=== PATIENT | female | born 1990 | race Caucasian/White ===

== ENCOUNTER 2019-01-13 12:48 | Emergency (ER) | payer OTHER ==
[~2019-01-13] VITALS: Ht 162.6 cm; Wt 70.4 kg
[2019-01-13] MEDS ORDERED: CYMB1CAP4 PO (14:11)
[2019-01-13] MEDS ORDERED: CVS10CAP8 PO (14:11)
[2019-01-13] MEDS ORDERED: MULTCAP PO (14:11)
[2019-01-13] MEDS ORDERED: AMBI5TAB PO (14:11)
[2019-01-13 14:51] LABS: HEMATOCRIT 42.4 % (36.0-47.0); HEMOGLOBIN 13.7 g/dl (12.0-15.5); MEAN CORPUSCULAR HEMOGLOBIN 29.1 pg (27.0-33.0); MEAN CORPUSCULAR HGB CONC 32.3 g/dl (32.0-36.5); PLATELET COUNT, AUTOMATED 300 10^3/uL (150-450); RED BLOOD COUNT 4.71 10^6/uL (4.00-5.40); WHITE BLOOD COUNT 7.7 10^3/uL (4.0-10.0)
[2019-01-13 15:03] LABS: HCG, SERUM QUALITATIVE NEGATIVE (NEGATIVE)
[2019-01-13 15:13] LABS: ACETAMINOPHEN LEVEL < 2.0 UG/ML (10.0-30.0); ALBUMIN 4.2 GM/DL (3.2-5.2); ALT/SGPT 19 U/L (12-78); BILIRUBIN,DIRECT < 0.1 MG/DL (0.0-0.2); BILIRUBIN,TOTAL 0.4 MG/DL (0.2-1.0); BLOOD UREA NITROGEN 9 MG/DL (7-18); CALCIUM LEVEL 9.5 MG/DL (8.5-10.1); CARBON DIOXIDE LEVEL 27 MEQ/L (21-32); CHLORIDE LEVEL 109 MEQ/L (98-107); CREATININE FOR GFR 0.71 MG/DL (0.55-1.30); ETHYL ALCOHOL (ETHANOL) < 0.003 % (0.000-0.010); GLOMERULAR FILTRATION RATE > 60.0 (>60); GLUCOSE, FASTING 85 MG/DL (70-100); POTASSIUM SERUM 3.9 MEQ/L (3.5-5.1); SALICYLATE LEVEL < 1.7 MG/DL (5.0-30.0); SODIUM LEVEL 142 MEQ/L (136-145); TOTAL PROTEIN 7.7 GM/DL (6.4-8.2)
[2019-01-13 15:23] LABS: AMPHETAMINES LEVEL URINE NEGATIVE (NEGATIVE); BARBITURATES URINE NEGATIVE (NEGATIVE); BENZODIAZEPINES URINE NEGATIVE (NEGATIVE); CANNABINOIDS URINE NEGATIVE (NEGATIVE); COCAINE METABOLITE URINE NEGATIVE (NEGATIVE); METHADONE URINE NEGATIVE (NEGATIVE); OPIATES URINE NEGATIVE (NEGATIVE); PHENCYCLIDINE URINE NEGATIVE (NEGATIVE)
[2019-01-13] MEDS ORDERED: ALPRAZolam 0.5 MG TAB PO ONE (15:45)
[2019-01-13 18:24] VITALS: BP 127/79
== END 2019-01-13 18:29 | disposition home or self-care (01) ==
LOC: M ED 12:48
DX: F43.0 Acute stress reaction (principal); F41.9 Anxiety disorder, unspecified; F43.10 Post-traumatic stress disorder, unspecified; Z79.899 Other long term (current) drug therapy
CPT/HCPCS: 80048; 80076; 80307; 84443; 84703; 85027; 99284; G0480

== ENCOUNTER 2019-05-22 14:43 | Emergency (ER) | payer OTHER ==
[~2019-05-22] VITALS: Ht 162.6 cm; Wt 70.5 kg
[~2019-05-22 14:43] MED LIST: AMBI5TAB PO; CVS10CAP8 PO; CYMB1CAP4 PO; MULTCAP PO
[2019-05-22] MEDS ORDERED: PREN29TA4 PO (14:50)
[2019-05-22 15:25] LABS: BASO % 0.5 % (0.0-1.0); EOS # 0.1 10^3/uL (0.0-0.5); EOS % 2.4 % (0.0-3.0); HEMATOCRIT 40.2 % (36.0-47.0); HEMOGLOBIN 13.1 g/dl (12.0-15.5); LYMPH # 1.5 10^3/uL (1.5-5.0); LYMPH % 25.6 % (24.0-44.0); MEAN CORPUSCULAR HEMOGLOBIN 29.3 pg (27.0-33.0); MEAN CORPUSCULAR HGB CONC 32.6 g/dl (32.0-36.5); MEAN CORPUSCULAR VOLUME 89.9 fl (80.0-96.0); MONO # 0.3 10^3/uL (0.0-0.8); MONO % 5.7 % (0.0-5.0); NEUTROPHILS # 3.7 10^3/uL (1.5-8.5); NEUTROPHILS % 65.3 % (36.0-66.0); PLATELET COUNT, AUTOMATED 315 10^3/uL (150-450); RED BLOOD COUNT 4.47 10^6/uL (4.00-5.40); WHITE BLOOD COUNT 5.7 10^3/uL (4.0-10.0)
[2019-05-22 16:04] LABS: BLOOD UREA NITROGEN 7 MG/DL (7-18); CALCIUM LEVEL 9.1 MG/DL (8.5-10.1); CARBON DIOXIDE LEVEL 31 MEQ/L (21-32); CHLORIDE LEVEL 107 MEQ/L (98-107); CREATININE FOR GFR 0.69 MG/DL (0.55-1.30); GLOMERULAR FILTRATION RATE > 60.0 (>60); GLUCOSE, FASTING 84 MG/DL (70-100); HCG, SERUM QUANTITATIVE 4924 MIU/ML; SODIUM LEVEL 141 MEQ/L (136-145)
--- NOTE | 2019-05-22 17:50 | REPVR ---
PROCEDURE INFORMATION: Exam: US , Transvaginal Exam date and time: 05/22/2019 4:59 PM Age: 28 years old Clinical indication: Lmp or gestational age (in weeks): 5w3d; Other: Vag bleeding; ; Additional info: Vaginal bleeding TECHNIQUE: Imaging protocol: Real-time transvaginal obstetrical ultrasound of the maternal pelvis and a first trimester with image documentation. Transvaginal imaging was used for better evaluation of the fetus and adnexa. Limited trans abdominal images, incomplete urinary bladder distension. COMPARISON: No relevant prior studies available. FINDINGS: GESTATION: Gestation: Single intrauterine . 3.1 mm yolk sac. Heart rate: No embryo or intrauterine cardiac activity identified. BIOMETRY: Mean sac diameter: Mean sac diameter 5 weeks 2 days (0.5 cm). MATERNAL: Uterus: Uterus 7.9 x 4.1 x 4.3 cm. Anteriorright uterine corporal hypoechoic 1.1 cm leiomyoma. Isoechoic 7.9 mm left uterine corporal leiomyoma (series 1, image 34). Right adnexa: Right ovary 2.5 x 4.8 x 2.5 cm. Complex left ovarian cyst/corpus luteum measuring 2.0 x 2.7 x 2.1 cm, with thick posterior partial septation. Left adnexa: Left ovary 1.7 x 2.6 x 1.8 cm. Unremarkable. Normal blood flow. IMPRESSION: 1. Single intrauterine . 5 weeks 2 days by mean sac diameter. A 1 week follow-up is recommended to confirm viability. 2. Complex right ovarian cyst/corpus luteum. Follow-up recommended. 3. Small uterine leiomyomas. Electronically signed by: Jethro Darling On 05/22/2019 17:50:35 PM
[2019-05-22 18:02] VITALS: BP 116/72
--- NOTE | 2019-05-24 18:41 | ED PDOC ---
Post-Departure Follow-Up dr bowen faxed formal report of 1st trimester us for fu Shelbie Valdez MD May 24, 2019 18:41
== END 2019-05-22 18:23 | disposition home or self-care (01) ==
LOC: M ED 14:43
DX: O20.8 Other hemorrhage in early pregnancy (principal); O34.81 Maternal care for other abnormalities of pelvic organs, first trimester; O99.341 Other mental disorders complicating pregnancy, first trimester; Z3A.01 Less than 8 weeks gestation of pregnancy; Z87.448 Personal history of other diseases of urinary system; Z79.899 Other long term (current) drug therapy

== ENCOUNTER → 2019-05-25 | Outpatient (CLI) | payer OTHER ==
[~2019-05-25] MED LIST changes: +PREN29TA4 PO
== END ==
LOC: M LAB 10:34
PROVIDERS: ATTEND Obstetrics & Gynecology
DX: N93.9 Abnormal uterine and vaginal bleeding, unspecified (principal)

== ENCOUNTER → 2019-05-26 | Outpatient (REF) | payer OTHER ==
[2019-05-26 18:08] LABS: HEMATOCRIT 40.9 % (36.0-47.0); MEAN CORPUSCULAR HEMOGLOBIN 28.8 pg (27.0-33.0); MEAN CORPUSCULAR HGB CONC 31.8 g/dl (32.0-36.5); MEAN CORPUSCULAR VOLUME 90.7 fl (80.0-96.0); PLATELET COUNT, AUTOMATED 292 10^3/uL (150-450); RED BLOOD COUNT 4.51 10^6/uL (4.00-5.40)
[2019-05-26 19:27] LABS: CHLAMYDIA DNA AMPLIFICATION NEGATIVE (NEGATIVE); GC DNA AMPLIFICATION NEGATIVE (NEGATIVE)
[2019-05-27 11:29] LABS: HEPATITIS B SURFACE ANTIGEN NEGATIVE (NEGATIVE); HEPATITIS C VIRUS ABY INDEX 0.1 INDEX (<0.8); HIV 1&2 SCREEN CENTAUR NEGATIVE (NEGATIVE); RUBELLA IgG QUALITATIVE IMMUNE (IMMUNE)
== END ==
LOC: M PLALAB 14:36
PROVIDERS: ATTEND Obstetrics & Gynecology
DX: Z34.01 Encounter for supervision of normal first pregnancy, first trimester (principal); Z11.3 Encounter for screening for infections with a predominantly sexual mode of transmission

== ENCOUNTER → 2019-06-15 | Outpatient (REF) | payer OTHER | LOC: M PLALAB 10:18 | PROVIDERS: ATTEND Obstetrics & Gynecology | DX: Z34.01 Encounter for supervision of normal first pregnancy, first trimester (principal); R39.9 Unspecified symptoms and signs involving the genitourinary system ==

== ENCOUNTER → 2019-09-02 | Outpatient (CLI) | payer OTHER ==
--- NOTE | 2019-09-03 01:54 | REP ---
OB ULTRASOUND: Real-time sonographic evaluation of gravid uterus performed. There is a single living intrauterine gestation with estimated gestational age is 21 weeks 1 day based on today's ultrasound, [facility] 01/12/2020. BPD 47 mm = 20 weeks 2 days HC 177 mm = 20 weeks 1 day AC 170 mm = 22 weeks 0 days Femur length 31 mm = 19 weeks 5 days HC/AC ratio 1.04, normal range 1.05 to 1.24. Estimated weight 381 grams, 35th percentile. Cervical length: Cervix closed and measures 3.4 cm in length. heart rate: 139 beats per minute. SEEN/GROSSLY UNREMARKABLE Lateral ventricles Yes Posterior fossa Yes Upper lip Yes Four-chamber heart Yes LVOT Yes RVOT Yes Stomach Yes Cord insertion Yes Three vessel cord Yes Kidneys Yes Bladder Yes Spine Yes position: Variable. Placenta: Fundal and to the right, grade 1, with no previa or abruption. Amniotic fluid: Within normal limits.
== END ==
LOC: M WHC 14:58
PROVIDERS: ATTEND Advanced Practice Midwife
DX: Z36.3 Encounter for antenatal screening for malformations (principal); Z3A.21 21 weeks gestation of pregnancy

== ENCOUNTER → 2019-10-15 | Outpatient (REF) | payer OTHER ==
[2019-11-12 11:51] LABS: BASO % 0.3 % (0.0-1.0); EOS # 0.2 10^3/uL (0.0-0.5); EOS % 2.6 % (0.0-3.0); HEMATOCRIT 37.5 % (36.0-47.0); HEMOGLOBIN 12.3 g/dl (12.0-15.5); LYMPH # 1.4 10^3/uL (1.5-5.0); MEAN CORPUSCULAR HEMOGLOBIN 29.8 pg (27.0-33.0); MEAN CORPUSCULAR HGB CONC 32.8 g/dl (32.0-36.5); MEAN CORPUSCULAR VOLUME 90.8 fl (80.0-96.0); MONO # 0.5 10^3/uL (0.0-0.8); MONO % 5.8 % (0.0-5.0); NEUTROPHILS # 6.7 10^3/uL (1.5-8.5); NEUTROPHILS % 74.3 % (36.0-66.0); PLATELET COUNT, AUTOMATED 258 10^3/uL (150-450); RED BLOOD COUNT 4.13 10^6/uL (4.00-5.40)
== END ==
LOC: M SFHCWAGY 12:42
PROVIDERS: ATTEND Advanced Practice Midwife
DX: Z34.83 Encounter for supervision of other normal pregnancy, third trimester (principal); Z36.89 Encounter for other specified antenatal screening
CPT/HCPCS: 36415; 82950; 85025; 86850; 86900; 86901; G0463

== ENCOUNTER → 2019-12-25 | Outpatient (REF) | payer OTHER | LOC: M SFHCWAGY 09:45 | PROVIDERS: ATTEND Advanced Practice Midwife | DX: Z34.03 Encounter for supervision of normal first pregnancy, third trimester (principal) | CPT/HCPCS: 87081; G0463 ==

== ENCOUNTER 2020-01-10 16:57 | Inpatient (IN) | payer OTHER ==
[~2020-01-10] VITALS: Ht 162.6 cm; Wt 85.2 kg
[2020-01-10] MEDS ORDERED: miSOPROStol 50 MCG 1/2 TAB (S0191) SL SCH (18:00)
[2020-01-10 18:19] VITALS: BP 119/77
[2020-01-10 18:26] LABS: HEMATOCRIT 39.3 % (36.0-47.0); HEMOGLOBIN 12.7 g/dl (12.0-15.5); MEAN CORPUSCULAR HEMOGLOBIN 28.2 pg (27.0-33.0); MEAN CORPUSCULAR HGB CONC 32.3 g/dl (32.0-36.5); MEAN CORPUSCULAR VOLUME 87.3 fl (80.0-96.0); PLATELET COUNT, AUTOMATED 225 10^3/uL (150-450); WHITE BLOOD COUNT 8.8 10^3/uL (4.0-10.0)
[2020-01-10 19:36] VITALS: BP 123/79
[2020-01-10 21:08] VITALS: BP 108/66
[2020-01-10 22:12] VITALS: BP 134/87
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
[2020-01-10] MEDS ORDERED: LR 1,000 ML IV SCH (22:35)
[2020-01-10] MEDS ORDERED: PROMETHAZINE INJ 25 MG/ML VIAL (J2550) IV ONE (22:45)
[2020-01-10] MEDS ORDERED: OXYTOCIN DRIP 30 UNITS in IV 1 EA IV SCH (22:45)
[2020-01-10] MEDS ORDERED: BUTORPHANOL 2 MG/ML INJ (J0595) IV ONE (22:45)
[2020-01-10] MEDS ORDERED: FENTANYL 2MCG/ML ROPIVACAINE 0.2% IN 0.9% NACL 100ML IVBAG As Ordered ONE (23:00)
[2020-01-10 23:05] VITALS: BP 95/62
[2020-01-10 23:35] VITALS: BP 125/83
[2020-01-10] MEDS ORDERED: REFRIGERATOR IV KEYS XX PRN (23:58)
[2020-01-10] MEDS ORDERED: diphenhydrAMINE 50MG/ML VIAL (J1200) IV PRN (23:58)
[2020-01-10] MEDS ORDERED: ePHEDrine SULFATE 25 MG/5 ML(5MG/ML) SYRINGE IV PRN (23:58)
[2020-01-10] MEDS ORDERED: EPIDURAL/PCA KEYS XX PRN (23:58)
[2020-01-10] MEDS ORDERED: EPIDURAL COMMENT XX SCH (23:58)
[2020-01-10] MEDS ORDERED: LACTATED RINGER'S 1000 ML IV PRN (23:58)
[2020-01-10] MEDS ORDERED: FENTANYL/ROPIVACAINE/NACL BAG 100 ML EPIDURAL SCH (23:58)
[2020-01-10] MEDS ORDERED: ONDANSETRON 4MG/2ML VIAL IV PRN (23:58)
[2020-01-10] MEDS ORDERED: NALOXONE INJ 0.4MG/1ML VIAL (J2310 PER 1MG) IV PRN (23:58)
[2020-01-11] VITALS (29 sets, daily range): BP systolic 89–146; BP diastolic 50–76
[2020-01-11] MEDS ORDERED: MEASLES,MUMPS,RUBELLA VACCINE INJ (MMR-II) (90707) SC SCH (04:30)
[2020-01-11] MEDS ORDERED: RHOGAM 300 MCG (1500 IU) INJ (J2790) IM SCH (04:30)
[2020-01-11] MEDS ORDERED: IBUPROFEN 800 MG TAB PO PRN (04:30)
[2020-01-11] MEDS ORDERED: IBUPROFEN 600MG TAB PO PRN (04:30)
[2020-01-11] MEDS ORDERED: METHYLERGONOVINE MALEATE 0.2 MG TAB PO PRN (04:30)
[2020-01-11] MEDS ORDERED: OXYTOCIN DRIP 30 UNITS in IV 1 EA IV ONE (04:30)
[2020-01-11] MEDS ORDERED: ACETAMINOPHEN TAB 650MG DOSE (2X325MG) PO PRN (04:30)
[2020-01-11] MEDS ORDERED: DIBUCAINE 1% OINTMENT 30GM TOP PRN (04:30)
[2020-01-11] MEDS ORDERED: DOCUSATE SODIUM 100 MG CAP PO PRN (04:30)
--- NOTE | 2020-01-11 04:32 | DNPDOC ---
[facility] Delivery Note Delivery Note DATE OF DELIVERY: January 11, 2020 PREDELIVERY DIAGNOSIS: 38-5/7 weeks' gestation and labor. POST DELIVERY DIAGNOSIS: Delivered. PROCEDURE: Spontaneous vaginal delivery. LEGAL TECHNICIAN: Dr. Nilesh Iraheta MD ANESTHESIA: epidural. ESTIMATED BLOOD LOSS: 300 mL. FINDINGS: 7 pound 10 ounce Male infant, Score 9/9. DELIVERY SUMMARY: Patient is a 29-year-old 1 now para 1 who was admitted to labor and delivery spontaneous rupture of membranes. After a 15 minute second stage of labor there was a spontaneous vaginal delivery of a 7 lb. 10 oz. Male infant. No nuchal cord .Shoulders delivered with ease. Placenta delivered spontaneously and appeared to be intact. First degree perineal laceration repaired with 2-O Chromic in the usual fashion. Pt received IV Pitocin immediately after delivery of the placenta. Sponge and needle counts correct. NILESH IRAHETA MD Jan 11, 2020 04:32
[2020-01-11] MEDS: PRENATAL VITAMINS CHEWABLE TABLET PO SCH (08:11)
[2020-01-11] MEDS: ACETAMINOPHEN 500 MG TAB PO PRN ×2 (14:25→20:45)
[2020-01-12] MEDS: ACETAMINOPHEN 500 MG TAB PO PRN (04:29)
[2020-01-12 05:32] VITALS: BP 111/56
--- NOTE | 2020-01-12 06:51 | IPNPDOC ---
Progress Note Date of Service: Jan 12, 2020 Day#: 1 Progress Note SUBJECT: Shirin is a 29-year-old 1 now Para 1-0-0-1 status post uncomp licated spontaneous vaginal delivery, doing well day # 1 She has been ambulating, voiding spontaneously without issue and tolerating regular diet. Breast feeding without issue. Reports lochia is like a normal period, no odor. Patient is ambulating well. Reports some cramping with , Tylenol and Motrin with good effect. Denies any pain. Voiding and passing flatus without difficulty, took Dulcolax this morning. Desires discharge home, pending discharge OBJECTIVE: VITAL SIGNS: Within normal limits, afebrile. Alert and oriented times three. Abdomen: Fundus firm at U-1. Soft, NTTP. Minimal, rubra lochia. ASSESSMENT: Day 1 PLAN: 1. Discharge to home today. 2. Tylenol and Motrin for pain. 3. Encourage breast feeding and ambulation. 4. Routine PP visit in 6 weeks in clinic. 5. Discussed return precautions at length. VS, I&O, 24H, Fishbone Vital Signs/I&O Vital Signs Date Time Temp Pulse Resp B/P (MAP) Pulse Ox O2 Delivery O2 Flow Rate FiO2 01/12/20 05:32 98.5 72 18 111/56 (74) 01/11/20 08:00 100 Room Air I&O- Last 24 Hours up to 6 AM 01/12/20 06:00 Intake Total 240 ml Output Total 800 ml Balance -560 ml NE PINTO CNM Jan 12, 2020 06:51
[2020-01-12] MEDS: PRENATAL VITAMINS CHEWABLE TABLET PO SCH (07:34)
[2020-01-12 18:04] VITALS: BP 134/87
[2020-01-13 05:51] VITALS: BP 125/70
[2020-01-13] MEDS: PRENATAL VITAMINS CHEWABLE TABLET PO SCH (07:55)
[2020-01-13] MEDS: ACETAMINOPHEN 500 MG TAB PO PRN (07:56)
== END 2020-01-13 12:20 | disposition home or self-care (01) | DRG 807 ==
LOC: M LDO 16:57 → M LDI 17:15 → M OBS 01-11 06:41
PROVIDERS: ADMIT Specialist; ATTEND Specialist
PROC: 10E0XZZ Delivery of Products of Conception, External Approach (ICD-10-PCS; principal; 2020-01-11)
PROC: 0HQ9XZZ Repair Perineum Skin, External Approach (ICD-10-PCS; 2020-01-11)
DX: O42.02 Full-term premature rupture of membranes, onset of labor within 24 hours of rupture (principal); Z37.0 Single live birth; Z3A.38 38 weeks gestation of pregnancy; O70.0 First degree perineal laceration during delivery

== ENCOUNTER → 2020-06-08 | Outpatient (REF) | payer OTHER | LOC: M SFHCWAGY 17:03 | PROVIDERS: ATTEND Advanced Practice Midwife | DX: Z12.4 Encounter for screening for malignant neoplasm of cervix (principal) | CPT/HCPCS: G0123; G0463 ==

== ENCOUNTER 2020-06-12 15:09 | Emergency (ER) | payer OTHER ==
[~2020-06-12] VITALS: Ht 162.6 cm; Wt 74.1 kg
[2020-06-12] MEDS ORDERED: NS 500 ML IV ONE (15:25)
[2020-06-12 15:49] LABS: BASO % 0.3 % (0.0-1.0); EOS # 0.2 10^3/uL (0.0-0.5); EOS % 3.3 % (0.0-3.0); HEMATOCRIT 41.3 % (36.0-47.0); HEMOGLOBIN 13.5 g/dl (12.0-15.5); LYMPH # 1.5 10^3/uL (1.5-5.0); LYMPH % 23.3 % (24.0-44.0); MEAN CORPUSCULAR HEMOGLOBIN 28.9 pg (27.0-33.0); MEAN CORPUSCULAR HGB CONC 32.7 g/dl (32.0-36.5); MEAN CORPUSCULAR VOLUME 88.4 fl (80.0-96.0); MONO # 0.4 10^3/uL (0.0-0.8); MONO % 6.1 % (2.0-8.0); NEUTROPHILS # 4.4 10^3/uL (1.5-8.5); NEUTROPHILS % 66.5 % (36.0-66.0); PLATELET COUNT, AUTOMATED 279 10^3/uL (150-450); RED BLOOD COUNT 4.67 10^6/uL (4.00-5.40); WHITE BLOOD COUNT 6.6 10^3/uL (4.0-10.0)
[2020-06-12] MEDS ORDERED: ISOVUE-370 76% 100ML VIAL As Ordered ONE (15:53)
[2020-06-12 16:03] LABS: PROTHROMBIN TIME 13.4 SECONDS (12.5-14.3)
[2020-06-12 16:04] LABS: PARTIAL THROMBOPLASTIN TIME 28.5 SECONDS (24.2-38.5)
[2020-06-12 16:08] LABS: ALT/SGPT 21 U/L (12-78)
[2020-06-12 16:09] LABS: ALBUMIN 3.9 GM/DL (3.2-5.2); AMYLASE 60 U/L (25-115); BILIRUBIN,DIRECT < 0.1 MG/DL (0.0-0.2); BILIRUBIN,TOTAL 0.3 MG/DL (0.2-1.0); LIPASE 101 U/L (73-393); TOTAL PROTEIN 7.1 GM/DL (6.4-8.2)
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
[2020-06-12 17:45] VITALS: BP 121/81
[2020-06-12] MEDS ORDERED: ACETAMINOPHEN 325 MG TAB PO ONE (17:45)
--- NOTE | 2020-06-12 19:32 | ECGEPIP ---
[facility] - ED Test Date: 2020-06-12 Pat Name: YOEL DAMIAN Department: Room: - Gender: Female Striper: : 1990 Requested By: Shelbie Hitchcock Order Number: [id number] Reading MD: Shelbie Hitchcock Measurements Intervals Bates Rate: 67 P: -14 SD: 150 QRS: 26 QRSD: 94 T: 28 QT: 398 QTc: 420 Interpretive Statements Normal sinus rhythm Nonspecific ST T wave changes Electronically Signed on 06-12-2020 19:31:52 EDT by Shelbie Hitchcock
== END 2020-06-12 18:24 | disposition home or self-care (01) ==
LOC: M ED 15:09
DX: S16.1XXA Strain of muscle, fascia and tendon at neck level, initial encounter (principal); S32.018A Other fracture of first lumbar vertebra, initial encounter for closed fracture; S32.028A Other fracture of second lumbar vertebra, initial encounter for closed fracture; V03.10XA Pedestrian on foot injured in collision with car, pick-up truck or van in traffic accident, initial encounter; Y92.480 Sidewalk as the place of occurrence of the external cause; I51.7 Cardiomegaly; M25.551 Pain in right hip
CPT/HCPCS: 70450; 71045; 71260; 72125; 72131; 73502; 73700; 74177; 80047; 80076; 82150; 83690; 84702; 85025; 85610; 85730; 86850; 86900; 86901; 93005; 93041; 94760; 96360; 99285; Q9967

== ENCOUNTER → 2020-07-06 | Outpatient (CLI) | payer OTHER ==
--- NOTE | 2020-07-07 13:58 | ECHO ---
DATE OF PROCEDURE: 07/06/2020 Age: 29 Gender: Female Height: Weight: REFERRING INDIVIDUAL: Sonu Israel. INDICATION: Cardiomegaly. MEASUREMENTS: 2D Measurements: Proximal ascending aorta 2.4 cm Interventricular septum 0.77 cm Posterior wall 0.80 cm Left ventricle diastole 4.9 cm Left ventricle systole 3.4 cm Aortic root 2.9 cm Left atrium 3.4 cm Doppler Measurements: No aortic stenosis No aortic regurgitation Aortic valve velocity 119 cm/s LVOT velocity 98.5 cm/s LVOT VTI 21.1 cm Trace mitral regurgitation Mitral E velocity 98.3 cm/s Mitral A velocity 36.5 cm/s Mitral deceleration time 187 msec Mild tricuspid regurgitation Estimated right ventricle systolic pressure 23-28 mmHg Estimated right atrial pressure of 5-10 mmHg No pulmonic regurgitation MITRAL ANNULAR TISSUE DOPPLER E prime septal 10.7 cm/s, E prime lateral 13.0 cm/s DESCRIPTION: Rhythm was sinus rhythm and sinus bradycardia observed. No pericardial effusion. Image quality was good. This was a 2D, M-mode, color flow Doppler, and pulsed wave Doppler examination including mitral annular tissue Doppler. CONCLUSIONS: 1. Normal echocardiogram Doppler. 2. Normal cardiac chamber size. Normal left ventricle internal dimensions and wall thickness. Normal regional LV wall motion and wall thickening. Normal LV systolic function. LVEF 60% by visual estimate. Super-normal LV diastolic function. 3. No pericardial effusion. MTDD
== END ==
LOC: M CARPUL 08:44
PROVIDERS: ATTEND Emergency Medicine
DX: I51.7 Cardiomegaly (principal)

== ENCOUNTER 2021-07-30 06:25 | Emergency (ER) | payer OTHER ==
[~2021-07-30] VITALS: Ht 162.6 cm; Wt 72.9 kg
[2021-07-30 06:25] VITALS: BP 142/85
[~2021-07-30 06:25] MED LIST changes: -CVS10CAP8 PO; +MELA10CA6 PO
[2021-07-30] MEDS ORDERED: NAPR-837 PO (07:54)
[2021-07-30] MEDS ORDERED: CYCL-707 PO (07:54)
== END 2021-07-30 08:10 | disposition home or self-care (01) ==
LOC: M ED 06:25
DX: S16.1XXA Strain of muscle, fascia and tendon at neck level, initial encounter (principal); X50.1XXA Overexertion from prolonged static or awkward postures, initial encounter; M54.2 Cervicalgia; G89.29 Other chronic pain; M26.621 Arthralgia of right temporomandibular joint; Z87.828 Personal history of other (healed) physical injury and trauma